=== PATIENT | male | born 1980 | race Caucasian/White ===

== ENCOUNTER 2020-07-13 12:17 | Emergency (ER) | payer MEDICAID, SELFPAY ==
[~2020-07-13] VITALS: Ht 167.6 cm; Wt 81.6 kg
[2020-07-13 12:20] VITALS: Ht 167.6 cm; Wt 81.6 kg
[2020-07-13 13:59] VITALS: BP 118/85
== END 2020-07-13 14:03 | disposition home or self-care (01) ==
LOC: ED 12:17
DX: U07.1 COVID-19 (principal)
CPT/HCPCS: U0003